=== PATIENT | female | born 1950 | race Caucasian/White ===

== ENCOUNTER 2016-09-20 15:39 | Emergency (ER) | payer MEDICARE, OTHER ==
[2016-09-20] MEDS ORDERED: LIDOCAINE 5% PATCH TD ONE ×2 (19:45→20:00)
[2016-09-20] MEDS ORDERED: DOXYCYCLINE HYCLATE 100 MG TABLET ONE (20:05)
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
== END 2016-09-20 20:24 | disposition home or self-care (01) ==
LOC: ED 15:39
DX: J18.9 Pneumonia, unspecified organism (principal); R07.81 Pleurodynia
CPT/HCPCS: 71020; 99283; 99284; A9270 ×2

== ENCOUNTER 2016-10-25 01:56 | Emergency (ER) | payer MEDICARE, OTHER ==
[2016-10-25 02:27] LABS: PH,URINE 6.5 (5.0-8.0); SPECIFIC GRAVITY 1.015 (1.001-1.030); URINE BILIRUBIN NEGATIVE (NEGATIVE); URINE BLOOD 4+ (NEGATIVE); URINE GLUCOSE (UA) NEGATIVE (NEGATIVE); URINE LEUKOCYTE ESTERASE 2+ (NEGATIVE); URINE NITRITE NEGATIVE (NEGATIVE); URINE PROTEIN 2+ (NEGATIVE); URINE UROBILINOGEN NORMAL (0-1 mg/dl)
[2016-10-25 02:30] LABS: URINE APPEARANCE TURBID; URINE COLOR LIGHT YELLOW
[2016-10-25 02:35] LABS: URINE RBC >100 /hpf; URINE WBC >100 /hpf
[2016-10-25 02:36] LABS: URINE BACTERIA RARE; URINE EPITHELIAL CELLS 2-3 SQUAMOUS /hpf
[2016-10-25] MEDS ORDERED: PHENAZOPYRIDINE HCL 200 MG TABLET ONE (02:47)
[2016-10-25] MEDS ORDERED: CEPHALEXIN 500 MG CAPSULE ONE (02:47)
[2016-10-25] MEDS ORDERED: CEFTRIAXONE SODIUM 1 G VIAL ONE (02:52)
== END 2016-10-25 03:14 | disposition home or self-care (01) ==
LOC: ED 01:56
DX: N30.01 Acute cystitis with hematuria (principal); I48.91 Unspecified atrial fibrillation; I25.2 Old myocardial infarction
CPT/HCPCS: 87086; 81001; 99283 ×2; A9270 ×2; J0696